=== PATIENT | male | born 1995 | race American Indian/Alaskan Native ===

== ENCOUNTER 2019-01-29 16:18 | Emergency (ER) | payer OTHER ==
--- NOTE | 2019-01-29 16:46 | Emergency Department Report ---
Blank Doc - Documentation Documentation: This is a 23-year-old male that presents with right testicular swelling. Stated pain has resolved but swelling is worse. History of left testicular torsion. This initial assessment/diagnostic orders/clinical plan/treatment(s) is/are subject to change based on patient's health status, clinical progression and re- assessment by fellow clinical providers in the ED. Further treatment and workup at subsequent clinical providers discretion. Patient/guardians urged not to elope from the ED as their condition may be serious if not clinically assessed and managed. Initial orders include: 1- Patient sent to [facility] for further evaluation and treatment 2- UA 3- US doppler of testicular STAT
--- NOTE | 2019-01-29 18:26 | Ultrasound Report ---
PROCEDURE: US TESTICULAR DOPPLER COMP TECHNIQUE: Ultrasound scrotum HISTORY: right testicular pain COMPARISONS: FINDINGS: Patient is status post left orchiectomy Right testicle 4.4 x 2.4 x 3.2 cm. Normal echogenicity. There is normal vascular flow on pulsed and c olor Doppler evaluation. No evidence for epididymal enlargement. Minimal hydrocele. No evidence for v aricocele IMPRESSION: Minimal right hydrocele. Normal sonographic appearance of the right testicle Status post left orchiectomy. This document is electronically signed by Jef Caldwell MD., January 29 2019 06:23:48 PM ET
--- NOTE | 2019-01-29 21:12 | Emergency Department Report ---
ED Male HPI - General Chief complaint: Urogenital-Male Stated complaint: TESTICULAR PAIN Time Seen by Provider: 01/29/19 16:44 Source: patient Mode of arrival: Ambulatory Limitations: No Limitations - History of Present Illness Initial comments: This is a 23-year-old male that presents with right testicular swelling. Stated pain has resolved but swelling is worse. History of left testicular torsion. MD Complaint: testicle swelling Onset/Timin -: week(s) Location: right testicle Radiation: none Severity: moderate Severity scale (0 -10): 3 Quality: aching Consistency: constant Improves with: none Worsens with: palpation, movement (I do we just started G probably) denies: dysuria, fever, nausea/vomiting - Related Data Sexually active: Yes Previous Rx's Medication Instructions Recorded Last Taken Type Amoxicillin/K Clav Tab [Augmentin 1 tab PO Q12HR #20 tab 11/25/18 Unknown Rx 875MG TAB] Cetirizine HCl [ZyrTEC] 10 mg PO QAM 14 Days #14 capsule 11/25/18 Unknown Rx Fluticasone [Flonase] 1 spray NS QDAY 14 Days #14 bottle 11/25/18 Unknown Rx Ibuprofen [Motrin] 400 mg PO Q8H PRN #15 tablet 11/25/18 Unknown Rx predniSONE [Prednisone] 10 mg PO QAM 6 Days #1 tab.ds.pk 11/25/18 Unknown Rx Doxycycline [Vibramycin CAP] 100 mg PO BID 10 Days #20 capsule 01/29/19 Unknown Rx Ibuprofen 800 mg PO TID PRN #30 tablet 01/29/19 Unknown Rx Allergies Allergy/AdvReac Type Severity Reaction Status Date / Time No Known Allergies Allergy Verified 01/29/19 16:20 ED Review of Systems ROS: Stated complaint: TESTICULAR PAIN Other details as noted in HPI Constitutional: denies: chills, fever Eyes: denies: eye pain, eye discharge, vision change ENT: denies: ear pain, throat pain Respiratory: denies: cough, shortness of breath, wheezing Cardiovascular: denies: chest pain, palpitations Endocrine: no symptoms reported Gastrointestinal: denies: abdominal pain, nausea, vomiting (long), diarrhea Genitourinary: testicular pain. denies: urgency, dysuria, frequency, hematuria, discharge Musculoskeletal: denies: back pain, joint swelling, arthralgia Skin: denies: rash, lesions Neurological: denies: headache, weakness, paresthesias Psychiatric: denies: anxiety, depression Hematological/Lymphatic: denies: easy bleeding, easy bruising ED Past Medical Hx - Past Medical History Previous Medical History?: No Additional medical history: Sinusitis, Allergies - Surgical History Additional Surgical History: Right arm mole removal, Left testicular removal, [place] tooth removed - Social History Smoking Status: Never Smoker Substance Use Type: None - Medications Home Medications: Home Medications Medication Instructions Recorded Confirmed Last Taken Type Amoxicillin/K Clav Tab [Augmentin 1 tab PO Q12HR #20 tab 11/25/18 Unknown Rx 875MG TAB] Cetirizine HCl [ZyrTEC] 10 mg PO QAM 14 Days #14 capsule 11/25/18 Unknown Rx Fluticasone [Flonase] 1 spray NS QDAY 14 Days #14 bottle 11/25/18 Unknown Rx Ibuprofen [Motrin] 400 mg PO Q8H PRN #15 tablet 11/25/18 Unknown Rx predniSONE [Prednisone] 10 mg PO QAM 6 Days #1 tab.ds.pk 11/25/18 Unknown Rx Doxycycline [Vibramycin CAP] 100 mg PO BID 10 Days #20 capsule 01/29/19 Unknown Rx Ibuprofen 800 mg PO TID PRN #30 tablet 01/29/19 Unknown Rx ED Physical Exam - General Limitations: No Limitations General appearance: alert, in no apparent distress - Head Head exam: Present: atraumatic, normocephalic - Eye Eye exam: Present: normal appearance, PERRL, EOMI Pupils: Present: normal accommodation - ENT ENT exam: Present: normal orophraynx, mucous membranes moist, TM's normal bilaterally, normal external ear exam - Neck Neck exam: Present: normal inspection, full ROM. Absent: tenderness, menin gismus, lymphadenopathy, thyromegaly - Respiratory Respiratory exam: Present: normal lung sounds bilaterally. Absent: respiratory distress, wheezes, stridor, chest wall tenderness - Cardiovascular Cardiovascular Exam: Present: regular rate, normal rhythm, normal heart sounds. Absent: systolic murmur, diastolic murmur, rubs, gallop - GI/Abdominal GI/Abdominal exam: Present: soft, normal bowel sounds. Absent: tenderness, rebound, bruit, hernia - Rectal Rectal exam: Present: deferred - exam: Present: testicular tenderness, scrotal swelling, circumcision. Absent: urethral discharge External exam: Present: normal external exam. Absent: erythema, swelling, lesions, lacerations, ecchymosis, bleeding - Extremities Exam Extremities exam: Present: normal inspection, full ROM, normal capillary refill. Absent: tenderness, pedal edema, joint swelling, calf tenderness - Back Exam Back exam: Present: normal inspection, full ROM. Absent: tenderness, CVA tenderness (R), CVA tenderness (L), muscle spasm, paraspinal tenderness, vertebral tenderness - Neurological Exam Neurological exam: Present: alert, oriented X3, CN II-XII intact, normal gait. Absent: reflexes normal - Psychiatric Psychiatric exam: Present: normal affect, normal mood - Skin Skin exam: Present: warm, dry, intact, normal color. Absent: rash ED Course Vital Signs 01/29/19 16:44 Temperature 97.6 F Pulse Rate 68 Respiratory 16 Rate Blood Pressure 132/78 O2 Sat by Pulse 99 Oximetry ED Medical Decision Making - Radiology Data Radiology results: report reviewed, image reviewed FINDINGS: Patient is status post left orchiectomy Right testicle 4.4 x 2.4 x 3.2 cm. Normal echogenicity. There is normal vascular flow on pulsed and color Doppler evaluation. No evidence for epididymal enlargement. Minimal hydrocele. No evidence for varicocele IMPRESSION: Minimal right hydrocele. Normal sonographic appearance of the right testicle Status post left orchiectomy. This document is electronically signed by Jef Cuevas MD., January 29 2019 06:23:48 PM ET Transcribed By: HANNA Dictated By: FIONA CUEVAS MD Electronically Authenticated By: FIONA CUEVAS MD Signed Date/Time: 01/29/191825 DD/ 25 TD/TT: 01/29/191725 - Medical Decision Making Shows a small hydrocele palpable epididymal there is mild tenderness there is no penile discharge no fever no chills no abdominal pain no nausea vomiting patient is 23 years old will treat with doxycycline x 10 days ibuprofen prn pain follow up with pcp in 2-3 days urology in 2-3 days pt verbalized agreeent and understanding of discharge plan. Critical care attestation.: If time is entered above; I have spent that time in minutes in the direct care of this critically ill patient, excluding procedure time. ED Disposition Clinical Impression: Hydrocele of testis, Epididymitis Disposition: TO HOME OR SELFCARE Is pt being admited?: No Does the pt Need Aspirin: No Condition: Stable Instructions: Epididymitis (ED), Hydrocele (ED), Testicle Pain (ED) Prescriptions: Ibuprofen 800 mg PO TID PRN #30 tablet PRN Reason: pain Doxycycline [Vibramycin CAP] 100 mg PO BID 10 Days #20 capsule Referrals: JUNIOR ORDAZ MD [Primary Care Provider] - 3-5 Days SOPHIE ZARAGOZA MD [Staff Physician] - 3-5 Days [facility] [Outside] - 3-5 Days Forms: STI Treatment and Prevention Time of Disposition: 21:16
[2019-01-29 21:46] VITALS: BP 115/77
== END 2019-01-29 21:45 | disposition home or self-care (01) ==
LOC: ED 16:18
DX: N45.1 Epididymitis (principal); N43.3 Hydrocele, unspecified; Z98.890 Other specified postprocedural states
CPT/HCPCS: 93975

== ENCOUNTER 2020-02-14 03:45 | Emergency (ER) | payer SELFPAY ==
[2020-02-14 03:54] VITALS: BP 121/75
[2020-02-14] MEDS ORDERED: TETANUS,DIPH,PERTUSS(ACELL) VACCINE 0.5 ML SYRINGE IM ONE (04:43)
--- NOTE | 2020-02-14 04:48 | Emergency Department Report ---
- General Chief Complaint: Wound/Laceration Stated Complaint: LEFT INDEX FINGER LACERATION Time Seen by Provider: 02/14/20 04:20 Source: patient Mode of arrival: Ambulatory Limitations: No Limitations - History of Present Illness Initial Comments: Patient is a 24-year-old male presents emergency room with complaints of a laceration to the left index finger that occurred just prior to arrival. Patient states that he had a pocket knife in his pants pocket and reached into his pocket and accidentally cut himself. He states he is able to move the finger without difficulty. He states initially there was bleeding but has since resolved after being wrapped in gauze. He denies any numbness or weakness. He states he is unsure of his last tetanus immunization. He denies any past medical history or allergies to medications. - Related Data Previous Rx's Medication Instructions Recorded Last Taken Type Amoxicillin/K Clav Tab [Augmentin 1 tab PO Q12HR #20 tab 11/25/18 Unknown Rx 875MG TAB] Cetirizine HCl [ZyrTEC] 10 mg PO QAM 14 Days #14 capsule 11/25/18 Unknown Rx Fluticasone [Flonase] 1 spray NS QDAY 14 Days #14 bottle 11/25/18 Unknown Rx Ibuprofen [Motrin] 400 mg PO Q8H PRN #15 tablet 11/25/18 Unknown Rx predniSONE [Prednisone] 10 mg PO QAM 6 Days #1 tab.ds.pk 11/25/18 Unknown Rx DOXYCYCLINE Hyclate [Vibramycin 100 mg PO BID 10 Days #20 capsule 01/29/19 Unknown Rx CAP] Ibuprofen [Ibuprofen 800] 800 mg PO TID PRN #30 tablet 01/29/19 Unknown Rx Allergies Allergy/AdvReac Type Severity Reaction Status Date / Time No Known Allergies Allergy Verified 01/29/19 16:20 ED Review of Systems ROS: Stated complaint: LEFT INDEX FINGER LACERATION Other details as noted in HPI Comment: All other systems reviewed and negative ED Past Medical Hx - Past Medical History Previous Medical History?: No Additional medical history: Sinusitis, Allergies - Surgical History Past Surgical History?: Yes Additional Surgical History: Right arm mole removal, Left testicular removal, [place] tooth removed - Social History Smoking Status: Current Every Day Smoker Substance Use Type: None - Medications Home Medications: Home Medications Medication Instructions Recorded Confirmed Last Taken Type Amoxicillin/K Clav Tab [Augmentin 1 tab PO Q12HR #20 tab 01/04/19 Unknown Rx 875MG TAB] Cetirizine HCl [ZyrTEC] 10 mg PO QAM 14 Days #14 capsule 11/25/18 Unknown Rx Fluticasone [Flonase] 1 spray NS QDAY 14 Days #14 bottle 11/25/18 Unknown Rx Ibuprofen [Motrin] 400 mg PO Q8H PRN #15 tablet 11/25/18 Unknown Rx predniSONE [Prednisone] 10 mg PO QAM 6 Days #1 tab.ds.pk 11/25/18 Unknown Rx DOXYCYCLINE Hyclate [Vibramycin 100 mg PO BID 10 Days #20 capsule 01/29/19 Unknown Rx CAP] Ibuprofen [Ibuprofen 800] 800 mg PO TID PRN #30 tablet 01/29/19 Unknown Rx ED Physical Exam - General Limitations: No Limitations General appearance: alert, in no apparent distress - Head Head exam: Present: atraumatic, normocephalic - Eye Eye exam: Present: normal appearance - ENT ENT exam: Present: mucous membranes moist - Neurological Exam Neurological exam: Present: alert, oriented X3 - Psychiatric Psychiatric exam: Present: normal affect, normal mood - Skin Skin exam: Present: warm, dry, other (1 cm very superficial laceration to the distal, palmar left index finger, small flap, only through the epidermis and small amount of the dermis, does not involve the subcutaneous tissue, no muscle/tendon involvement, no bleeding, no foreign body, FROM of the left fingers and hand, neurovascularly intact) ED Course Vital Signs 02/14/20 03:45 Temperature 98.6 F Pulse Rate 81 Respiratory 18 Rate Blood Pressure 121/75 O2 Sat by Pulse 97 Oximetry - Laceration /Wound Repair Left Distal Palm Finger Wound Location: upper extremity (distal left index finger on the palmar surface) Wound Length (cm): 1 Wound's Depth, Shape: superficial Wound Explored: clean Irrigated w/ Saline (ccs): 50 Betadine Prep?: Yes Volume Anesthetic (ccs): 0 Wound Debrided: moderate Wound Repaired With: Steri-strips, Dermabond Number of Sutures: 0 Layer Closure?: No Sterile Dressing Applied?: Yes Progress: Very superficial laceration present in the distal left index finger, irrigated with saline and thoroughly scrubbed with Betadine, several applications of Dermabond applied with good skin closure, Steri-Strips applied, patient tolerated well, there is no bleeding present, sterile dressing applied ED Medical Decision Making - Medical Decision Making Patient is a 24-year-old male presents emergency room with complaints of a laceration to the left index finger that occurred just prior to arrival. Patient states that he had a pocket knife in his pants pocket and reached into his pocket and accidentally cut himself. He states he is able to move the finger without difficulty. He states initially there was bleeding but has since resolved after being wrapped in gauze. He denies any numbness or weakness. He states he is unsure of his last tetanus immunization. He denies any past medical history or allergies to medications. Vitals are normal. on exam: 1 cm very superficial laceration to the distal, palmar left index finger, small flap, only through the epidermis and small amount of the dermis, does not involve the subcutaneous tissue, no muscle/tendon involvement, no bleeding, no foreign body, FROM of the left fingers and hand, neurovascularly intact. Superficial laceration irrigated with saline and thoroughly scrubbed with Betadine and repaired with Dermabond and Steri-Strips per procedure note. Patient given tetanus immunization. advised pt Please keep area clean, dry. Please keep current Steri-Strips in place for 2 days and avoid getting the area wet. After 2 days may wash with soap and water and immediately dry. No hot tub, no pool, no soaking in water. Follow-up with a primary care doctor for reexamination. Return to the emergency room immediately for any new or worsening symptoms or any signs of infection. Critical care attestation.: If time is entered above; I have spent that time in minutes in the direct care of this critically ill patient, excluding procedure time. ED Disposition Clinical Impression: Laceration of left index finger Qualifiers: Encounter type: initial encounter Damage to nail status: without damage Foreign body presence: without foreign body Qualified Code(s): S61.211A - Laceration without foreign body of left index finger without damage to nail, initial encounter Disposition: DC-01 TO HOME OR SELFCARE Is pt being admited?: No Does the pt Need Aspirin: No Condition: Stable Instructions: Laceration (ED), Skin Adhesive Care (ED) Additional Instructions: Please keep area clean, dry. Please keep current Steri-Strips in place for 2 days and avoid getting the area wet. After 2 days may wash with soap and water and immediately dry. No hot tub, no pool, no soaking in water. Follow-up with a primary care doctor for reexamination. Return to the emergency room immediately for any new or worsening symptoms or any signs of infection. Referrals: ZHANG TRISTAN MD [Staff Physician] - 2-3 Days [facility] [Outside] - 2-3 Days [facility] [Outside] - 2-3 Days Time of Disposition: 04:45 Print Language: MACEDONIAN
== END 2020-02-14 05:00 | disposition home or self-care (01) ==
LOC: ED 03:45
DX: S61.211A Laceration without foreign body of left index finger without damage to nail, initial encounter (principal); W26.0XXA Contact with knife, initial encounter; Y93.89 Activity, other specified; Y92.89 Other specified places as the place of occurrence of the external cause; Y99.8 Other external cause status; F17.200 Nicotine dependence, unspecified, uncomplicated; Z98.890 Other specified postprocedural states; Z79.899 Other long term (current) drug therapy
CPT/HCPCS: 90471; 90715; 99282